=== PATIENT | male | born 1945 | race Hispanic/Latino ===

== ENCOUNTER 2017-01-05 02:55 | Inpatient (IN) | payer OTHER ==
[~2017-01-05] VITALS: Ht 157.5 cm; Wt 90.7 kg
[~2017-01-05 02:55] MED LIST: AFRIN PUMPMIST15 ML INH; AZITHROMYCIN500 MG PO; CLONIDINE0.2 MG PO; COREG 25 MG TAB25 MG PO; FLOMAX(MONOGRA0.4 MG PO; FOLIC ACID 1 MG PO; GLIPIZIDE10 MG PO; GLYBURIDE5 MG PO; HUMIRA (4040 MG/0.8 INJ; METFORMIN1000 MG PO; METHOTREXA50 MG/2 ML PO; METHOTREXATE2.5 MG PO; PIOGLITAZONE45 MG PO; VALSARTAN AND H1 TA3 PO; VITAMIN D1000 IU PO
--- NOTE | 2017-01-05 03:10 | ED GI/GU/ABDOMINAL COMPLAINT ---
History of Present Illness General Chief Complaint: Abdominal Pain/Flank Pain Stated Complaint: ABD PAIN SINCE 1700 Source: patient Exam Limitations: no limitations Vital Signs & Intake/Output Vital Signs & Intake/Output Vital Signs Date Time Temp Pulse Resp B/P B/P Pulse O2 O2 Flow FiO2 Mean Ox Delivery Rate 01/05 0315 96.9 68 20 179/80 96 Room Air Allergies Coded Allergies: latex (Intermediate, RASH 01/05/17) Reconcile Medications adalimumab (Humira) 40 MG/0.8 ML SYRINGEKIT 40 MG INJ [id number] RA (Reported) LAST DOSE ON 11/18/14 TAKES EVERY 15 DAYS Azithromycin 500 MG TAB 1 TAB PO DAILY penumonia stop after taking a dose on 11/26/14 Carvedilol (Coreg) 25 MG TABLET 1 TAB PO BID HTN (Reported) CLONIDINE HCL (Clonidine) 0.2 MG TABLET 1 TAB PO TID HTN (Reported) Folic Acid 1 MG TABLET 1 TAB PO DAILY SUPPLEMENT (Reported) Glyburide 2.5 MG TABLET 1 TAB PO BID DIABETES (Reported) Hydrochlorothiazide/Valsarta (Valsartan and Hydrochlorothiazide 25 MG-160 M) 1 TAB TAB 1 TAB PO DAILY HTN (Reported) Reason to Stop at ADM: DUE TO [place] METFORMIN HCL (Metformin) 1,000 MG TABLET 1 TAB PO BID DM (Reported) Reason to Stop at ADM: [place] Methotrexate Sodium (Methotrexate) 2.5 MG TABLET 2 TAB PO QWEEK RA (Reported) LAST DOSE ON 11/20 TAKES EVERY SATURDAY PIOGLITAZONE HCL (Pioglitazone HCl) 45 MG TABLET 1 TAB PO DAILY DM (Reported) Reason to Stop at ADM: ON ISS Tamsulosin Hydrochloride (Flomax) 0.4 MG CAP.ER.24H 1 CAP PO DAILY prostate ( Reported) Triage Nurses Notes Reviewed? yes Onset: Gradual Duration: hour(s):, waxing and waning Timing: recent history Quality/Severity: cramping Location: left lower quadrant Radiation: no radiation Activities at Onset: none Prior Abdominal Problems: similar symptoms Modifying Factors: Worsens With: palpation. Associated Symptoms: abdominal pain, nausea/vomiting HPI: 71 yo gentleman h/o diabetes, diverticulitis, s/p resection, presents with left lower quadrant abdominal tenderness since 5pm yesterday, associated with mild nausea and vomiting. He notes no fever, chills, diarrhea, constipation, chest pain, shortness of breath. He is otherwise well. Past History Medical History Any Pertinent Medical History? see below for history Cardiovascular: hypertension, hyperlipidemia Respiratory: TB Musculoskeletal: RA Endocrine: diabetes History of MRSA: No History of VRE: No History of CDIFF: No Pneumonia Vaccine: 08/05/09 Surgical History Surgical History: none Psychosocial History Who do you live with Spouse Services at Home None What is your primary language [place] Family History Family History, If Any: FATHER FH: diabetes mellitus Hx Contributory? No Review of Systems Review of Systems Constitutional: Reports: no symptoms. EENTM: Reports: no symptoms. Respiratory: Reports: no symptoms. Cardiovascular: Reports: no symptoms. GI: Reports: no symptoms. Genitourinary: Reports: no symptoms. Musculoskeletal: Reports: no symptoms. Skin: Reports: no symptoms. Neurological/Psychological: Reports: no symptoms. Hematologic/Endocrine: Reports: no symptoms. Immunologic/Allergic: Reports: no symptoms. All Other Systems: Reviewed and Negative Physical Exam Physical Exam General Appearance: well developed/nourished, mild distress Head: atraumatic, normal appearance Eyes: Bilateral: normal appearance. Ears, Nose, Throat, Mouth: hearing grossly normal Neck: normal inspection, supple, full range of motion, normal alignment Respiratory: normal breath sounds Cardiovascular: regular rate/rhythm Gastrointestinal: normal bowel sounds, soft, non distended, left lower quadrant tenderness. no rebound. no guarding Back: normal inspection, normal range of motion Extremities: normal range of motion Neurologic/Psych: no motor/sensory deficits, awake, alert, oriented x 3 Skin: intact, normal color, warm/dry Core Measures ACS in differential dx? No Severe Sepsis Present: No Septic Shock Present: No Progress Differential Diagnosis: appendicitis, bowel obstruction, diverticulitis, gastritis, hepatitis, SBO Plan of Care: Orders Procedure Date/time Status Admit to inpatient 01/05 0456 Active TROPONIN LEVEL 01/05 030 Complete LIPASE 01/05 030 Complete HEPATIC FUNCTION PANEL 01/05 030 Complete CBC WITHOUT DIFFERENTIAL 01/05 030 Complete BASIC METABOLIC PANEL 01/05 030 Complete AMYLASE 01/05 030 Complete EKG 01/05 030 Active Laboratory Tests 01/05/17 0330: Anion Gap 11, Estimated GFR 59 L, BUN/Creatinine Ratio 30.0 H, Glucose 291 H, Calcium 9.0, Total Bilirubin 0.5, Direct Bilirubin 0.3, AST 19, ALT 37, Alkaline Phosphatase 80, Troponin I < 0.01, Total Protein 6.3, Albumin 3.7, Amylase 62, Lipase 129, CBC w Diff NO MAN DIFF REQ, RBC 3.87 L, MCV 89.5, MCH 29.4, RDW 14.8 H, MPV 8.5, Gran % 85.9 H, Lymphocytes % 9.9 L, Monocytes % 3.9, Eosinophils % 0.1, Basophils % 0.2, Absolute Granulocytes 8.0 H, Absolute Lymphocytes 0.9 L, Absolute Monocytes 0.4, Absolute Eosinophils 0, Absolute Basophils 0, PUBS MCHC 32.8 L Diagnostic Imaging: Viewed by Me: CT Scan. Discussed w/RAD: CT Scan. Radiology Impression: abd/pelvic... partial sbo..full report below. Initial ED EKG: normal axis, normal intervals, normal p-waves, normal QRS complex, normal sinus rhythm Comments: PATIENT: LEONARD PANIAGUA PRESENT AGE: 71 PATIENT ACCOUNT NO: [id number] : 43 LOCATION: [facility] ORDERING PHYSICIAN: JANE HART MD SERVICE DATE: 01/05/17 EXAM TYPE: CAT - CT ABD & PELVIS W/O IV CONTRAS EXAMINATION: CT ABDOMEN AND PELVIS WITHOUT CONTRAST CLINICAL INFORMATION: Left lower quadrant pain. History of diverticulitis with resection. COMPARISON: 03/23/2013 TECHNIQUE: Multidetector volumetric imaging was performed from the superior aspect of the liver through the pubic symphysis. Sagittal and coronal reformatted images were obtained on the technologist's workstation. DLP: 1080 mGy-cm FINDINGS: LUNG BASES: The visualized lung bases are unremarkable. LIVER, GALLBLADDER, AND BILIARY TREE: The liver is normal in size, shape, and attenuation. No focal hepatic lesion or biliary ductal dilatation is present. The gallbladder is unremarkable with no evidence of radiopaque gallstones, gallbladder wall thickening, or obvious pericholecystic inflammatory changes. PANCREAS: Unremarkable. SPLEEN: Unremarkable. ADRENAL GLANDS: Unremarkable. KIDNEYS AND URETERS: The kidneys are normal in size, shape, and attenuation. There is no hydronephrosis. There is a left lower pole 0.4 cm calculus, 11.5 cm from the posterior axillary line. There is also a 0.1 cm midpole calculus on the left. Symmetric bilateral perinephric stranding appears chronic. BLADDER: The bladder is normally distended without wall thickening. There is a bladder calculus present adjacent to the left ureterovesicular junction. The bladder calculus measures 0.7 cm. This is new from the previous study. GASTROINTESTINAL TRACT: The stomach is unremarkable. Mildly prominent fluid-filled small bowel is seen in the left lower quadrant, with an area of fecalization suggesting slow transit. There is a transition to more decompressed small bowel in the left lower quadrant in the area of image 55/89 anteriorly. Gas and stool are seen in the colon. No colonic inflammatory changes. There is a distal colonic anastomosis. ABDOMINAL WALL: No significant hernia is appreciated. LYMPH NODES: Normal. VASCULAR: Mild atherosclerotic calcifications. PELVIC VISCERA: The prostate and seminal vesicles are unremarkable. OSSEOUS STRUCTURES: No acute or suspicious osseous abnormality. Mild degenerative changes of the spine. IMPRESSION: Findings suggest a partial chronic small bowel obstruction, with fecalization of the small bowel in the left lower quadrant and mildly prominent small bowel proximal to this area. There is a transition to more decompressed small bowel. Stool is seen throughout the colon. No acute inflammatory changes of the colon. DICTATED BY: RADHA ALEGRIA MD DATE/TIME DICTATED:01/05/17348 MEMBERSHIP SECRETARY:TRISTON DATE/TIME TRANSCRIBED:01/05/17348 CONFIDENTIAL, DO NOT COPY WITHOUT APPROPRIATE AUTHORIZATION. <Electronically signed in Other Vendor System> SIGNED BY: RADHA ALEGRIA MD 01/05 Departure Departure Disposition: STILL A PATIENT Condition: Stable Clinical Impression Primary Impression: Partial small bowel obstruction Secondary Impressions: Abdominal pain Referrals: PATIENT HAS NO PRIMARY CARE DR (PCP/Family) Departure Forms: Customer Survey General Discharge Information Admission Note Spoke With: ANTHONY WATERS,PAULINA N. Documentation of Exam: Documentation of any treatments & extenuating circumstances including Concerns Regarding Discharge (functional status, medication knowledge or non-compliance, living conditions, etc.) that warrant an admission rather than observation: Pt with partial sbo, h/o prior surgeries... pt merits iv fluids, bowel rest. No need for ng tube at this time.
--- NOTE | 2017-01-05 03:18 | NUR ---
71/M PRESENT TO ED WITH C/C OF ABDOMEN AND LEFT GROIN PAIN / WHICH COMES AND GOES. C/O SLIGHT NAUSEATED BUT NOT VOMITED. AFEBRILE. LAST BM YESTERDAY. BOWEL SOUNDS HYPERACTIVE. PT REPORTS HAD LARGE VEGETABLES FOR DINNER AND ABDOMEN PAIN STARTED AROUND 5PM YESTERDAY AND GOT WORSE NOW. PT HAS HISTORY OF BOWEL RESECTION. NO C/O URINEARY SYMPTOMS. REPORTS NO ABDOMEN PAIN AT THIS TIME. DR. HART IN AND EVALUATED THE PT.
--- NOTE | 2017-01-05 03:35 | NUR ---
LABS DRAWN AND SENT.
--- NOTE | 2017-01-05 03:37 | NUR ---
PT TO CAT SCAN VIA STRETCHER
[2017-01-05 03:40] LABS: ABSOLUTE BASOPHIL COUNT 0 /CUMM (0.0-0.2); ABSOLUTE EOSINOPHIL COUNT 0 /CUMM (0.0-0.7); ABSOLUTE LYMPH COUNT 0.9 /CUMM (1.2-3.4); ABSOLUTE MONOCYTE COUNT 0.4 /CUMM (0.10-0.60); BASOPHIL % 0.2 % (0.0-2.0); EOSINOPHIL % 0.1 % (0-5); HEMATOCRIT 34.6 % (42-52); MEAN CORPUSCULAR HGB 29.4 PG (27.0-31.0); MEAN CORPUSCULAR HGB CONC 32.8 G/DL (33.0-37.0); MEAN CORPUSCULAR VOLUME 89.5 FL (80.0-94.0); MEAN PLATELET VOLUME 8.5 FL (7.4-10.4); PLATELET COUNT 210 /CUMM (130-400); RBC DISTRIBUTION WIDTH 14.8 % (11.5-14.5); RED BLOOD CELL CT 3.87 /CUMM (4.70-6.10); WHITE BLOOD CELL COUNT 9.3 /CUMM (4.8-10.8)
--- NOTE | 2017-01-05 03:50 | NUR ---
BACK FROM CT SCAN. EKG DONE.
[2017-01-05 03:51] LABS: GRANULOCYTE % 85.9 % (42.2-75.2)
--- NOTE | 2017-01-05 03:59 | CT SCAN REPORT ---
EXAMINATION: CT ABDOMEN AND PELVIS WITHOUT CONTRAST CLINICAL INFORMATION: Left lower quadrant pain. History of diverticulitis with resection. COMPARISON: 03/23/2013 TECHNIQUE: Multidetector volumetric imaging was performed from the superior aspect of the liver through the pubic symphysis. Sagittal and coronal reformatted images were obtained on the technologist's workstation. DLP: 1080 mGy-cm FINDINGS: LUNG BASES: The visualized lung bases are unremarkable. LIVER, GALLBLADDER, AND BILIARY TREE: The liver is normal in size, shape, and attenuation. No focal hepatic lesion or biliary ductal dilatation is present. The gallbladder is unremarkable with no evidence of radiopaque gallstones, gallbladder wall thickening, or obvious pericholecystic inflammatory changes. PANCREAS: Unremarkable. SPLEEN: Unremarkable. ADRENAL GLANDS: Unremarkable. KIDNEYS AND URETERS: The kidneys are normal in size, shape, and attenuation. There is no hydronephrosis. There is a left lower pole 0.4 cm calculus, 11.5 cm from the posterior axillary line. There is also a 0.1 cm midpole calculus on the left. Symmetric bilateral perinephric stranding appears chronic. BLADDER: The bladder is normally distended without wall thickening. There is a bladder calculus present adjacent to the left ureterovesicular junction. The bladder calculus measures 0.7 cm. This is new from the previous study. GASTROINTESTINAL TRACT: The stomach is unremarkable. Mildly prominent fluid-filled small bowel is seen in the left lower quadrant, with an area of fecalization suggesting slow transit. There is a transition to more decompressed small bowel in the left lower quadrant in the area of image 55/89 anteriorly. Gas and stool are seen in the colon. No colonic inflammatory changes. There is a distal colonic anastomosis. ABDOMINAL WALL: No significant hernia is appreciated. LYMPH NODES: Normal. VASCULAR: Mild atherosclerotic calcifications. PELVIC VISCERA: The prostate and seminal vesicles are unremarkable. OSSEOUS STRUCTURES: No acute or suspicious osseous abnormality. Mild degenerative changes of the spine. IMPRESSION: Findings suggest a partial chronic small bowel obstruction, with fecalization of the small bowel in the left lower quadrant and mildly prominent small bowel proximal to this area. There is a transition to more decompressed small bowel. Stool is seen throughout the colon. No acute inflammatory changes of the colon.
--- NOTE | 2017-01-05 04:23 | NUR ---
C/O ABDOMEN PAIN 04/14. NOTIFIED. MEDICATED WTIH TORADOL IVP ORDERED.
--- NOTE | 2017-01-05 04:33 | NUR ---
SURGICAL PA AT BEDSIDE
--- NOTE | 2017-01-05 05:32 | NUR ---
heparin sc administered on left arm. d5 1/2 ns up infusing as ordered.
--- NOTE | 2017-01-05 05:32 | NUR ---
Emergency Dept UC Admit Note: To be admitted to [facility] by DR. CRUZ with SMALL BOWEL OBSTRUCTION as the diagnosis, to [facility] 2NB #[id number] location. Nursing Vegetable Tier and admitting notified 01/05/17 at 0518
--- NOTE | 2017-01-05 05:38 | Admission Core Measures ---
Admission Lab Results I reviewed the following labs: Laboratory Tests 01/05 0330 Chemistry Sodium (137 - 145 mmol/L) 138 Potassium (3.5 - 5.1 mmol/L) 4.5 Chloride (98 - 107 mmol/L) 99 Carbon Dioxide (22 - 30 mmol/L) 28 Anion Gap (5 - 16) 11 BUN (9 - 20 mg/dL) 36 H Creatinine (0.7 - 1.2 mg/dL) 1.2 Estimated GFR (>60 ml/min) 59 L BUN/Creatinine Ratio (7 - 25 %) 30.0 H Glucose (65 - 99 mg/dL) 291 H Calcium (8.4 - 10.2 mg/dL) 9.0 Total Bilirubin (0.2 - 1.3 mg/dL) 0.5 Direct Bilirubin (< 0.4 mg/dL) 0.3 AST (17 - 59 U/L) 19 ALT (21 - 72 U/L) 37 Alkaline Phosphatase (< 127 U/L) 80 Troponin I (<0.11 ng/ml) < 0.01 Total Protein (6.3 - 8.2 g/dL) 6.3 Albumin (3.5 - 5.0 g/dL) 3.7 Amylase (30 - 110 U/L) 62 Lipase (23 - 300 U/L) 129 Hematology CBC w Diff NO MAN DIFF REQ WBC (4.8 - 10.8 /CUMM) 9.3 RBC (4.70 - 6.10 /CUMM) 3.87 L Hgb (14.0 - 18.0 G/DL) 11.4 L Hct (42 - 52 %) 34.6 L MCV (80.0 - 94.0 FL) 89.5 MCH (27.0 - 31.0 PG) 29.4 RDW (11.5 - 14.5 %) 14.8 H Plt Count (130 - 400 /CUMM) 210 MPV (7.4 - 10.4 FL) 8.5 Gran % (42.2 - 75.2 %) 85.9 H Lymphocytes % (20.5 - 51.1 %) 9.9 L Monocytes % (1.7 - 9.3 %) 3.9 Eosinophils % (0 - 5 %) 0.1 Basophils % (0.0 - 2.0 %) 0.2 Absolute Granulocytes (1.4 - 6.5 /CUMM) 8.0 H Absolute Lymphocytes (1.2 - 3.4 /CUMM) 0.9 L Absolute Monocytes (0.10 - 0.60 /CUMM) 0.4 Absolute Eosinophils (0.0 - 0.7 /CUMM) 0 Absolute Basophils (0.0 - 0.2 /CUMM) 0 PUBS MCHC (33.0 - 37.0 G/DL) 32.8 L Admission Meds I reviewed the following Meds: Current Medications Sig/Justina Start time Last Medication Dose Stop Time Status Admin Acetaminophen 650 MG Q6-PRN PRN 01/05 0515 UNVr (Tylenol) Carvedilol 25 MG BID 01/05 1000 UNVr (Coreg) Clonidine 0.2 MG TID 01/05 1000 CANr (Catapres) Dextrose/Sodium 1,000 ML .Q10H 01/05 0515 UNVr 01/05 Chloride 0531 (D5W-1/2 Normal Saline 1000ML) Heparin Sodium 5,000 UNIT Q8 01/05 0600 UNVr 01/05 (Porcine) 0531 Hydrochlorothiazide 25 MG DAILY 01/05 1000 CANr (Hydrodiuril) Insulin Human Regular 0 Q6 01/05 0600 UNVr (NovoLIN R) Losartan Potassium 50 MG DAILY 01/05 1000 UNVr (Cozaar) Morphine Sulfate 2 MG Q3P PRN 01/05 0515 UNVr (Morphine) Ondansetron HCl 4 MG Q6-PRN PRN 01/05 0515 UNVr (Zofran) Tamsulosin HCl 0.4 MG DAILY 01/05 1000 UNVr (Flomax) Acute Coronary Syndrome Inclusion Criteria ACS Diagnosis No Inpatient Core Measures LDL Reminder: If No, please order W/I first 24hr of stay Congestive Heart Failure Inclusion Criteria CHF Diagnosis No Cerebrovascular accident Inclusion Criteria CVA/TIA Diagnosis No Inpatient Core Measures Bedside Swallow Eval Reminder: If BSE failed, place ST order Antithrombotic Reminder: Order Antithrombotic Medication by end of day 2 Antithrombotic Reminder: Document Reason Antithrombotic Not ordered by end of day 2 AFIB/Flutter Reminder: If Present, add to problem list AFIB/Flutter Reminder: Order Anticoag Medication for pts with AFIB/Flutter Atherosclerosis Reminder: If Present, add to problem list LDL Reminder: If No, please order W/I first 24hr of stay PT Order Reminder: If No, please order Venous thromboembolism Inpatient Core Measures VTE Risk Factors: Acute medical illness, Age > 40 No [facility] VTE prophylaxis d/t No contraindications No VTE Pharm Prophylaxis d/t No contraindications Inclusion Criteria - Per Current guidelines, there needs to be overlap - treatment for the first 5 days of Warfarin therapy. - Parenteral Anticoagulation (IV or SC) needs to be - given along with Warfarin therapy. VTE Diagnosis No VTE Type NONE VTE Confirmed by (Test) NONE Problem List As ranked by this Provider includes Assessment & Plan 1. Partial small bowel obstruction HOME MEDS Home Med List adalimumab (Humira) 40 MG/0.8 ML SYRINGEKIT 40 MG INJ [id number] RA (Reported) Azithromycin 500 MG TAB 1 TAB PO DAILY penumonia Carvedilol (Coreg) 25 MG TABLET 1 TAB PO BID HTN (Reported) CLONIDINE HCL (Clonidine) 0.2 MG TABLET 1 TAB PO TID HTN (Reported) Folic Acid 1 MG TABLET 1 TAB PO DAILY SUPPLEMENT (Reported) Glyburide 2.5 MG TABLET 1 TAB PO BID DIABETES (Reported) Hydrochlorothiazide/Valsarta (Valsartan and Hydrochlorothiazide 25 MG-160 M) 1 TAB TAB 1 TAB PO DAILY HTN (Reported) METFORMIN HCL (Metformin) 1,000 MG TABLET 1 TAB PO BID DM (Reported) Methotrexate Sodium (Methotrexate) 2.5 MG TABLET 2 TAB PO QWEEK RA (Reported) PIOGLITAZONE HCL (Pioglitazone HCl) 45 MG TABLET 1 TAB PO DAILY DM (Reported) Tamsulosin Hydrochloride (Flomax) 0.4 MG CAP.ER.24H 1 CAP PO DAILY prostate ( Reported)
--- NOTE | 2017-01-05 05:43 | NUR ---
LEONARD PANIAGUA Nurse Note by: EWA BARKLEY I agree with the FINAL INSPECTOR MOVEMENT ASSEMBLY findings/evaluation of this patient's condition. Entered by: EWA BARKLEY Date: 01/05/17 Time: 0543
--- NOTE | 2017-01-05 05:47 | NUR ---
FINGER STICK [id number]. HOUSE STAFF NOTIFIED.
--- NOTE | 2017-01-05 05:52 | History & Physical Pre-Op ---
MAGDALENE OLIVEROS 01/05/17 0538: General Information and HPI MD Statement: I have seen and personally examined LEONARD PANIAGUA and documented this H&P. The patient is a 71 year old M who presented with a patient stated chief complaint of []. History of Present Illness: 71yoM presents to ED with complaints of abdominal pain. PMHx elly's with reversal greater than 20yr ago, with multiple SBOs in past, requiring EKATERINA/sb resection approx 20 yr ago, most recently resolved with conservative measures ( last sbo 2012). Denies n/v/cp/sob, last bm this am-"normal" per pt, no constipation or diarrhea. ?decreased flatus. Ate soup yesterday afternoon, then later had diffuse abdominal pain which sent him to ED for evaluation. at time of this interview, patient comfortable, denies abd pain/n/v. PMHx dm, htn, hyperlipidemia, ra on humira & methotrexate Allergies/Medications Allergies: Coded Allergies: latex (Intermediate, RASH 01/05/17) Home Med list adalimumab (Humira) 40 MG/0.8 ML SYRINGEKIT 40 MG INJ [id number] RA (Reported) LAST DOSE ON 11/18/14 TAKES EVERY 15 DAYS Azithromycin 500 MG TAB 1 TAB PO DAILY penumonia stop after taking a dose on 11/26/14 Carvedilol (Coreg) 25 MG TABLET 1 TAB PO BID HTN (Reported) CLONIDINE HCL (Clonidine) 0.2 MG TABLET 1 TAB PO TID HTN (Reported) Folic Acid 1 MG TABLET 1 TAB PO DAILY SUPPLEMENT (Reported) Glyburide 2.5 MG TABLET 1 TAB PO BID DIABETES (Reported) Hydrochlorothiazide/Valsarta (Valsartan and Hydrochlorothiazide 25 MG-160 M) 1 TAB TAB 1 TAB PO DAILY HTN (Reported) Reason to Stop at ADM: DUE TO [place] METFORMIN HCL (Metformin) 1,000 MG TABLET 1 TAB PO BID DM (Reported) Reason to Stop at ADM: [place] Methotrexate Sodium (Methotrexate) 2.5 MG TABLET 2 TAB PO QWEEK RA (Reported) LAST DOSE ON 11/20 TAKES EVERY SATURDAY PIOGLITAZONE HCL (Pioglitazone HCl) 45 MG TABLET 1 TAB PO DAILY DM (Reported) Reason to Stop at ADM: ON ISS Tamsulosin Hydrochloride (Flomax) 0.4 MG CAP.ER.24H 1 CAP PO DAILY prostate ( Reported) Past History Medical History Cardiovascular: hypertension, hyperlipidemia Respiratory: TB Gastrointestinal: hx multiple sbo, sp hartmans/reversal for perf diverticulitis, sp sbr for sbo Musculoskeletal: RA Endocrine: diabetes History of MRSA: No History of VRE: No History of CDIFF: No Pneumonia Vaccine: 08/05/09 Surgical History Pertinent Surgical History: none Past Family/Social History Family History Relations & Conditions if any FATHER FH: diabetes mellitus Psychosocial History Services at Home None ETOH Use: denies use Illicit Drug Use: denies illicit drug use Exam & Diagnostic Data Last 24 Hrs of Vital Signs/I&O Vital Signs Date Time Temp Pulse Resp B/P B/P Pulse O2 O2 Flow FiO2 Mean Ox Delivery Rate 01/05 0540 95.0 59 18 111/56 95 Room Air 01/05 0315 96.9 68 20 179/80 96 Room Air Intake & Output 01/05 0800 01/05 0000 01/04 1600 Intake Total Output Total Balance Patient 168 lb Weight Physical Exam: GEN; NAD CARD: S1S2 RRR PULM: CTAB ABD; obese, distended, soft, +bs throughout, TTP LLQ, nontender elsewhere, no rebound/guarding EXT: calves soft nt bl Last 24 Hrs of Labs/Glen: Laboratory Tests 01/05/17 0330: Anion Gap 11, Estimated GFR 59 L, BUN/Creatinine Ratio 30.0 H, Glucose 291 H, Calcium 9.0, Total Bilirubin 0.5, Direct Bilirubin 0.3, AST 19, ALT 37, Alkaline Phosphatase 80, Troponin I < 0.01, Total Protein 6.3, Albumin 3.7, Amylase 62, Lipase 129, CBC w Diff NO MAN DIFF REQ, RBC 3.87 L, MCV 89.5, MCH 29.4, RDW 14.8 H, MPV 8.5, Gran % 85.9 H, Lymphocytes % 9.9 L, Monocytes % 3.9, Eosinophils % 0.1, Basophils % 0.2, Absolute Granulocytes 8.0 H, Absolute Lymphocytes 0.9 L, Absolute Monocytes 0.4, Absolute Eosinophils 0, Absolute Basophils 0, PUBS MCHC 32.8 L Diagnostic Data Other Results CT A/P (dry): IMPRESSION: Findings suggest a partial chronic small bowel obstruction, with fecalization of the small bowel in the left lower quadrant and mildly prominent small bowel proximal to this area. There is a transition to more decompressed small bowel. Stool is seen throughout the colon. No acute inflammatory changes of the colon. Assessment/Plan Assessment/Plan: A: 71yoM PSBO with LLQ tenderness, otherwise stable. P: serial abd exams trend labs NPO, IVF, IV meds, home meds as appropriate DVT ppx may need NGT if condition worsens MV AXR later today d/w attending As Ranked By This Provider Problem List: 1. Partial small bowel obstruction ANTHONY WATERS,[facility] 01/06/17 1103: Attending MD Review Statement Attending Statement Attending Assessment/Plan: CC: abdominal pain HPI: 71-year-old diabetic ex-smoker on medications for weight arthritis and a history of recurrent small bowel obstructions attributable to a remote surgery for diverticulitis he had a colostomy and reversal he has had an NG tube in the past his feels that lately this is been happening annually after a return drive from [place] in the spring also after eating a large portion of vegetables this time yesterday he had vegetable soup. Otherwise no recent straining dehydration or constipation he is grimacing now getting crampy pain earlier in the day and felt better but yesterday it was 10 out of 10 constant no bleeding per rectum no vomiting a little bit of belching pain doesn't radiate to his back no dysuria. He and his said that his abdomen is normally quite protuberant and he doesn 't feel unusually distended. The PFSH were reviewed is a family history of diabetes past surgical history includes Simmons's and then reversal and then another laparotomy for bowel rest obstruction. On review previous episode here March 2013 by my colleague for small bowel obstruction which resolved in a few days nonoperatively Otherwise no changes bowel habits, weight or appetite. I've reviewed the PFSH. No history of GERD, PUD, bleeding problems, heart disease or issues with anesthesia. Constitutional: No fever, sweats or weight loss ENMT: No sore throat Cardiovascular: No chest pain, palpitations or leg swelling Respiratory: No shortness of breath, cough, or sputum or dyspnea on exertion GI: No GERD or bleeding per rectum : No dysuria or hematuria Musculoskeletal: No new muscle weakness, bone or joint pain Skin / Breast: No jaundice, rashes or itching Psychiatric: No history of drug or alcohol abuse no depression or anxiety Hematologic / lymphatic system: No problems with excessive bleeding, bruising, or blood clots Vital signs as mentioned above afebrile Constitutional: pleasant, no acute distress, conversant Eyes: sclera anicteric ENMT: ears and nose atraumatic, moist mucous membranes, good dentition, no lip lesions Neck: Supple, trachea is midline, no cervical or supraclavicular adenopathy and no palpable thyromegaly Cardiovascular: S1, S2, no murmurs, no peripheral edema Respiratory: clear to auscultation with normal respiratory effort and no intercostal retractions GI: abdomen soft, distended, mild periumbilical tenderness no rebound or guarding no erythema no palpable hepatosplenomegaly Extremities / lymphatics: symmetrically warm, free range of motion no peripheral edema, no cervical, supraclavicular, axillary, or inguinal adenopathy Musculoskeletal: Did not evaluate gait and station, no digital cyanosis, good muscle strength and tone no atrophy, motor grossly 5 out of 5 throughout Skin: no jaundice, no rashes warm, nondiaphoretic, no areas of erythema or induration Psychiatric: mood and affect are appropriate and alert and oriented to person place and time Labs and CT and multiview reviewed on PACS myself no signs of acidosis or bleeding I reviewed the CT scan on PACS myself and shows some dilated loops of small bowel no significant free fluid no obvious transition point with subsequent multiview it's limited technically some haziness but he still see some loops of dilated bowel. Impression Impression is small bowel obstruction presumably from adhesions from prior surgeries, often exacerbated by an unusual meal high in fiber or chewy food, or even straining. In the meantime will treat in routine nonoperative fashion with bowel rest, because is not nauseous and vomiting for the moment we will forego NG tube for decompression, but we'll need to monitor closely these recent waves of cramping, maintenance IV fluids and for the GI losses, monitor uo, electrolytes, vital signs, serial exams, labs, abdominal x-rays. Presently there are no peritoneal signs, if situation plateaus or worsens, especially if abdominal pain worsens in next 6-12 hours, might need urgent surgical intervention in the interest of bowel viability, but as I explained, most of the time it is not needed.
--- NOTE | 2017-01-05 05:57 | NUR ---
NOVOLIN SC 10 UNITS ADMINISTERED ORDERED FOR FINGER STICK [id number].
[2017-01-05 06:29] VITALS: BP 138/64
--- NOTE | 2017-01-05 06:44 | NUR ---
NURSE NOTE: PT ARRIVED TO FLOOR AROUND 0610, AAOX3, IVF. AT BEDSIDE. ASSESSMENT COMPLETED. PT PRIMARILY [place] SPEAKIGN BUT DOES SPEAK SOME GRENADIAN. VSS. WILL CONTINUE TO MONITOR
--- NOTE | 2017-01-05 14:56 | RADIOLOGY REPORT ---
EXAMINATION: XR ABDOMEN MULTIPLE VIEWS CLINICAL INDICATION: Abdominal pain and distention, the small bowel obstruction COMPARISON: 01/05/2017 and 03/23/2013 CT scans of abdomen pelvis TECHNIQUE: Supine and upright abdominal images were obtained. FINDINGS: There are nondilated loops of the small bowel and colon. There are surgical sutures in the region of the rectum. Stool seen in the course of colon. No air-fluid level seen. No free intra-abdominal air. There is an 8 mm calcific density projecting over the shadow of bladder, which can correlate with the bladder stone seen on the comparison CT scan of the same day. IMPRESSION: No x-ray evidence of bowel obstruction. Bladder stone. Postsurgical changes in the region of rectum. Correlation with past surgical history is suggested.
[2017-01-05 15:50] VITALS: BP 144/88
--- NOTE | 2017-01-05 17:21 | NUR ---
PT NUSEATED, DRY HEAVING, NO EMESIS. FEELING SUBSIDED AND PT REFUSED ZOFRAN. STILL NO FLATUS, HYPOACTIVE BOWEL SOUNDS, ENCOURAGED PT TO AMBULATE. WILL CONTINUE TO MONITOR.
[2017-01-05 21:39] VITALS: BP 162/76
[2017-01-06 06:49] VITALS: BP 174/76
[2017-01-06 08:21] LABS: ABSOLUTE BASOPHIL COUNT 0 /CUMM (0.0-0.2); ABSOLUTE EOSINOPHIL COUNT 0 /CUMM (0.0-0.7); ABSOLUTE GRANULOCYTE CT 6.5 /CUMM (1.4-6.5); ABSOLUTE LYMPH COUNT 1.4 /CUMM (1.2-3.4); ABSOLUTE MONOCYTE COUNT 1.1 /CUMM (0.10-0.60); BASOPHIL % 0.2 % (0.0-2.0); EOSINOPHIL % 0.1 % (0-5); GRANULOCYTE % 71.7 % (42.2-75.2); HEMATOCRIT 35.2 % (42-52); MEAN CORPUSCULAR HGB 29.4 PG (27.0-31.0); MEAN CORPUSCULAR VOLUME 89.2 FL (80.0-94.0); MEAN PLATELET VOLUME 8.7 FL (7.4-10.4); PLATELET COUNT 214 /CUMM (130-400); RBC DISTRIBUTION WIDTH 14.4 % (11.5-14.5); RED BLOOD CELL CT 3.95 /CUMM (4.70-6.10)
--- NOTE | 2017-01-06 08:48 | PN- General Surgery ---
See Addendum Subjective Subjective: No acute events overnight, started passing gas earlier this morning, he has been walking around a lot. He has no nausea no vomiting and no pain. Objective Vital Signs and I&Os Vital Signs Date Time Temp Pulse Resp B/P B/P Pulse O2 O2 Flow FiO2 Mean Ox Delivery Rate 01/07 0818 74 174/76 01/06 0817 74 174/76 01/06 0817 74 174/76 01/06 0649 97.9 74 20 174/76 92 / 2145 68 162/76 01/05 2139 97.3 68 21 162/76 95 Room Air 01/05 1550 98.1 88 18 144/88 95 Room Air 01/05 0911 60 136/64 01/05 0911 60 136/64 01/05 0911 60 136/64 Intake & Output 01/06 1600 01/06 0800 01/06 0000 01/05 1600 01/05 0800 01/05 0000 Intake Total 800 360 800 550 Output Total 450 200 300 Balance 350 160 500 550 Intake, IV 800 300 800 550 Intake, Oral 60 0 Number 0 Bowel Movements Output, Urine 450 200 300 Patient 200 lb Weight Weight Reported by Patient Measurement Method Physical Exam: Well-developed well-nourished no apparent distress. HEENT: Atraumatic, extraocular motion intact Neck: Supple, no lymphadenopathy Respiratory: No respiratory distress clear to auscultation bilateral. Heart: Regular rate and rhythm no murmur Abdomen: Distended chronically, bowel sounds present, nontender. Extremities: No edema, no calf pain Neuro: Alert and oriented x3 Psych: Mood affect normal, normal memory normal judgment. Skin: Warm and dry, no rash on exposed skin Results Last 48 Hours of Labs: Laboratory Tests 01/06 01/05 0747 0330 Chemistry Sodium (137 - 145 mmol/L) Pending 138 Potassium (3.5 - 5.1 mmol/L) Pending 4.5 Chloride (98 - 107 mmol/L) Pending 99 Carbon Dioxide (22 - 30 mmol/L) Pending 28 Anion Gap (5 - 16) Pending 11 BUN (9 - 20 mg/dL) Pending 36 H Creatinine (0.7 - 1.2 mg/dL) Pending 1.2 Estimated GFR (>60 ml/min) 59 L BUN/Creatinine Ratio (7 - 25 %) Pending 30.0 H Glucose (65 - 99 mg/dL) 291 H Calcium (8.4 - 10.2 mg/dL) 9.0 Total Bilirubin (0.2 - 1.3 mg/dL) 0.5 Direct Bilirubin (< 0.4 mg/dL) 0.3 AST (17 - 59 U/L) 19 ALT (21 - 72 U/L) 37 Alkaline Phosphatase (< 127 U/L) 80 Troponin I (<0.11 ng/ml) < 0.01 Total Protein (6.3 - 8.2 g/dL) 6.3 Albumin (3.5 - 5.0 g/dL) 3.7 Amylase (30 - 110 U/L) 62 Lipase (23 - 300 U/L) 129 Hematology CBC w Diff NO MAN DIFF REQ NO MAN DIFF REQ WBC (4.8 - 10.8 /CUMM) 9.0 9.3 RBC (4.70 - 6.10 /CUMM) 3.95 L 3.87 L Hgb (14.0 - 18.0 G/DL) 11.6 L 11.4 L Hct (42 - 52 %) 35.2 L 34.6 L MCV (80.0 - 94.0 FL) 89.2 89.5 MCH (27.0 - 31.0 PG) 29.4 29.4 RDW (11.5 - 14.5 %) 14.4 14.8 H Plt Count (130 - 400 /CUMM) 214 210 MPV (7.4 - 10.4 FL) 8.7 8.5 Gran % (42.2 - 75.2 %) 71.7 85.9 H Lymphocytes % (20.5 - 51.1 %) 15.8 L 9.9 L Monocytes % (1.7 - 9.3 %) 12.2 H 3.9 Eosinophils % (0 - 5 %) 0.1 0.1 Basophils % (0.0 - 2.0 %) 0.2 0.2 Absolute Granulocytes (1.4 - 6.5 /CUMM) 6.5 8.0 H Absolute Lymphocytes (1.2 - 3.4 /CUMM) 1.4 0.9 L Absolute Monocytes (0.10 - 0.60 /CUMM) 1.1 H 0.4 Absolute Eosinophils (0.0 - 0.7 /CUMM) 0 0 Absolute Basophils (0.0 - 0.2 /CUMM) 0 0 PUBS MCHC (33.0 - 37.0 G/DL) 33.0 32.8 L Assessment/Plan Assessment/Plan Hospital day #1 status post admission for small bowel obstruction, recurrent Multiview of abdomen yesterday evening shows improvement and clinically the patient is doing well Advance to clears, advance diet as tolerated Out of bed ad sakshi. Prilosec for GI prophylaxis Heparin subcutaneous for DVT prophylaxis Continue IV fluids until tolerating adequate by mouth Follow labs this morning Core Measures/Miscellaneous Venous Thromboembolism VTE Risk Factors: Age > 40 VTE Contraindications: No Contraindications VTE Diagnosis: No VTE Type: NONE VTE Confirmed by (Test): NONE Beta Ceasar Is Beta Ceasar a Home Med? No Antibiotics Is Patient on Antibiotics? No
[2017-01-06 14:42] VITALS: BP 142/70
[2017-01-06 21:46] VITALS: BP 140/70
[2017-01-07 06:47] VITALS: BP 144/66
--- NOTE | 2017-01-07 07:09 | PN- General Surgery ---
Subjective Subjective: The patient was seen this morning. He reports feeling comfortable with no abdominal pain this morning. He is tolerating a clear liquid diet without nausea or burping. He continues to pass flatus and had a small bowel movement early this morning. Objective Vital Signs and I&Os Vital Signs Date Time Temp Pulse Resp B/P B/P Pulse O2 O2 Flow FiO2 Mean Ox Delivery Rate 01/07 0647 98.5 73 20 144/66 93 / 2150 65 140/70 01/06 2146 97.8 65 20 140/70 95 Room Air 01/06 1442 98.0 79 18 142/70 94 Room Air 01/06 0818 74 174/76 01/06 0817 74 174/76 01/06 0817 74 174/76 Intake & Output 01/07 0801/07 0000 01/06 1600 01/06 0800 01/06 0000 01/05 1600 Intake Total 840 1380 1400 800 360 800 Output Total 850 950 450 450 200 300 Balance -10 430 950 350 160 500 Intake, IV 600 300 600 800 300 800 Intake, Oral 240 1080 800 60 0 Number 0 0 Bowel Movements Output, Urine 850 950 450 450 200 300 Physical Exam: Gen.: Alert and in no obvious distress Skin: Warm and dry Abdomen: Softly distended, nontender, bowel sounds positive. Extremities: Bilateral lower extremities are warm without calf tenderness or significant edema. Assessment/Plan Assessment/Plan Assessment: 71-year-old male with a resolving small bowel obstruction weeping managed with conservative treatment. The patient has started having bowel function and is currently tolerating a clear liquid diet without nausea. Plan: Advanced to full liquid diet with toast Hep-Lock IV fluids Follow-up morning laboratory studies GI and DVT prophylaxis Out of bed and ambulate Core Measures/Miscellaneous Venous Thromboembolism VTE Risk Factors: Age > 40 VTE Contraindications: No Contraindications VTE Diagnosis: No VTE Type: NONE VTE Confirmed by (Test): NONE Beta Ceasar Is Beta Ceasar a Home Med? No Antibiotics Is Patient on Antibiotics? No
[2017-01-07 14:39] VITALS: BP 160/70
--- NOTE | 2017-01-07 15:07 | Patient Discharge Instructions ---
Discharge Instructions General Discharge Information You were seen/treated for: Small bowel obstruction Watch for these problems: worsening abdominal pain, nausea, vomiting, inability to eat or drink, absence of stool or gas for >3 days Diet Continue normal diet: Yes Recommended Diet: Diabetic Activity Full Activity/No Limits: Yes Activity Self Limited: Yes Acute Coronary Syndrome Inclusion Criteria At DC or during hospital stay patient has or had the following: ACS DIAGNOSIS No Discharge Core Measures Meds if any: Prescribed or Continued at Discharge Meds if any: NOT Prescribed or Continued at Discharge Congestive Heart Failure Inclusion Criteria At DC or during hospital stay patient has or had the following: CHF DIAGNOSIS No Discharge Core Measures Meds if any: Prescribed or Continued at Discharge Meds if any: NOT Prescribed or Continued at Discharge Cerebrovascular accident Inclusion Criteria At DC or during hospital stay patient has or had the following: CVA/TIA Diagnosis No Discharge Core Measures Meds if any: Prescribed or Continued at Discharge Meds if any: NOT Prescribed or Continued at Discharge Venous thromboembolism Inclusion Criteria VTE Diagnosis No VTE Type NONE VTE Confirmed by (Test) NONE Discharge Core Measures - Per Current guidelines, there needs to be overlap - treatment for the first 5 days of Warfarin therapy. - If discharged on Warfarin prior to 5 days of - overlap therapy, the patient will need to be - assessed for post discharge needs including - *Post discharge parental anticoagulation - *Warfarin and/or parental anticoagulation education - *Follow up date to check INR post discharge At least 5 days overlap therapy as Inpatient No Meds if any: Prescribed or Continued at Discharge Note: Overlap Therapy is Warfarin and Anticoagulant Meds if any: NOT Prescribed or Continued at Discharge
--- NOTE | 2017-01-07 17:31 | Discharge Summary ---
Visit Information Visit Dates Admission Date: 01/05/17 Discharge Date: 01/07/17 Hospital Course Course Attending Physician: ANTHONY WATERS,PAULINA Santana Primary Care Physician: PATIENT HAS NO PRIMARY CARE DR Hospital Course: He was admitted 2 days ago with bowel obstruction I felt it was related to adhesions and a meal gradually resolved without requiring an NG tube this morning he had some bowel movements and were advancing his diet and if he tolerates we'll discharge him home needs to be careful to avoid that type of meal again. He denies any shortness of breath or chest pain Vital signs blood pressure 160/70 pulse 70 respirations 20 temperature 97.7 Constitutional: no acute distress no pain Eyes: sclera anicteric ENMT: moist mucous membranes Cardiovascular: S1-S2 no murmurs no peripheral edema Respiratory: clear to auscultation with normal respiratory effort and no intercostal retractions GI: abdomen soft nontender nondistended Extremities / lymphatics: free range of motion no peripheral edema Skin: no jaundice no rashes warm, nondiaphoretic Psychiatric: mood and affect are appropriate and alert and oriented to person place and time Labs: BUN down to 22 creatinine 1.1 was developed which within normal limits, no CBC or abdominal imaging today Impression is nonoperative resolution of recurrent small bowel obstruction these episodes are spaced apart if he can control what causes him he should avoid surgery especially since he improved so quickly. But it could still recurs when his to be careful with diet right now avoid large portions of rough which and vegetables or chewy candy for example in avoid straining and dehydration. Allergies: Coded Allergies: latex (Intermediate, RASH 01/05/17) Disposition Summary Disposition Principal Diagnosis: Small bowel obstruction Additional Diagnosis: None acute Discharge Disposition: home or self care Discharge Instructions General Discharge Information Code Status: Full Code Patient's Diet: As mentioned above Patient's Activity: No heavy lifting Follow-Up Instructions/Appts: 2 weeks office or sooner as recurrent symptoms Medications at Discharge Discharge Medications: Continue taking these medications: Hydrochlorothiazide/Valsarta (Valsartan and Hydrochlorothiazide 25 MG-160 M) 1 TAB TAB 1 Tablet ORAL DAILY Instructions: Reason to Stop at ADM: DUE TO [place] Comments: HYDROCHLOROTHIAZIDE 25 MG GIVEN 11/23/14 AT 10AM METFORMIN HCL (Metformin) 1,000 MG TABLET 1 Tablet ORAL TWICE DAILY Qty = 60 Instructions: Reason to Stop at ADM: [place] Comments: NOT GIVEN IN HOSP CLONIDINE HCL (Clonidine) 0.2 MG TABLET 1 Tablet ORAL THREE TIMES DAILY Qty = 90 Comments: Last Taken:11/23/14 Time:10 AM Carvedilol (Coreg) 25 MG TABLET 1 Tablet ORAL TWICE DAILY Qty = 60 Comments: Last Taken:11/23/14 Time:10 AM Folic Acid (Folic Acid) 1 MG TABLET 1 Tablet ORAL DAILY Qty = 30 Comments: Last Taken:11/23/14 Time:10 AM PIOGLITAZONE HCL (Pioglitazone HCl) 45 MG TABLET 1 Tablet ORAL DAILY Qty = 90 Instructions: Reason to Stop at ADM: ON ISS Comments: NOT GIVEN IN HOSP Tamsulosin Hydrochloride (Flomax) 0.4 MG CAP.ER.24H 1 Capsule ORAL DAILY Comments: Last Taken:11/23/14 Time:10 AM Glyburide (Glyburide) 2.5 MG TABLET 1 Tablet ORAL TWICE DAILY Comments: Last Taken:11/23/14 Time:10 AM adalimumab (Humira) 40 MG/0.8 ML SYRINGEKIT 40 Milligram INJECTABLE [id number] Instructions: LAST DOSE ON 11/18/14 TAKES EVERY 15 DAYS Comments: NOT GIVEN IN HOSP Methotrexate Sodium (Methotrexate) 2.5 MG TABLET 2 Tablet ORAL QWEEK Instructions: LAST DOSE ON 11/20 TAKES EVERY SATURDAY Comments: NOT GIVEN IN HOSP Azithromycin (Azithromycin) 500 MG TAB 1 Tablet ORAL DAILY Qty = 3 Instructions: stop after taking a dose on 11/26/14 Copies To: ANTHONY AWTERS,PAULINA Santana
== END 2017-01-07 15:30 | DRG 390 ==
LOC: ERH 02:55 → ERHI 04:56 → 2NB 04:56 → ENRESERV 05:26 → 2NB 06:07
PROVIDERS: Pediatrics; Physician Assistant Surgical; ADMIT Surgery
DX: K56.5 Intestinal adhesions [bands] with obstruction (postinfection) (principal); E11.9 Type 2 diabetes mellitus without complications; M06.9 Rheumatoid arthritis, unspecified; I10 Essential (primary) hypertension; E78.5 Hyperlipidemia, unspecified; Z79.84 Long term (current) use of oral hypoglycemic drugs; Z87.891 Personal history of nicotine dependence
CPT/HCPCS: 2NBP; 36415; 74020; 74176; 82436; 93005; 93010; 96374; J1644; J1815; J1885; J2405; J7042